=== PATIENT | male | born 1995 | race Caucasian/White ===

== ENCOUNTER 2017-10-13 23:41 | Emergency (ER) | payer OTHER ==
[~2017-10-13] VITALS: Ht 188 cm; Wt 71.2 kg
[2017-10-14] MEDS ORDERED: DIPH,PERTUSS(ACELL),TET VAC/PF 0.5 ML IM-VACC ONE ×2 (00:18→00:30)
[2017-10-14] MEDS ORDERED: HYDROcodone/APAP 5/325 TABLET ONE (00:18)
[2017-10-14] MEDS ORDERED: HYDROcodone/APAP 5/325 TABLET PO PRN (00:30)
[2017-10-14] MEDS ORDERED: LIDOCAINE 2%, 20ML INFIL ONE (00:30)
[2017-10-14] MEDS ORDERED: LIDOCAINE-MPF 1%, 5ML ONE (00:42)
[2017-10-14] MEDS ORDERED: BACITRACIN ZINC OINT 500U/GM, 0.9 GM ONE (00:43)
[2017-10-14] MEDS ORDERED: MICROFIBRILLAR COLLAGEN 1 GM TP ONE ×2 (01:47→02:00)
[2017-10-14 02:20] VITALS: BP 115/50
== END 2017-10-14 03:47 | disposition home or self-care (01) ==
LOC: ED 23:59
DX: S51.011A Laceration without foreign body of right elbow, initial encounter (principal); S61.511A Laceration without foreign body of right wrist, initial encounter; S61.411A Laceration without foreign body of right hand, initial encounter; S81.012A Laceration without foreign body, left knee, initial encounter; W01.198A Fall on same level from slipping, tripping and stumbling with subsequent striking against other object, initial encounter; Y93.89 Activity, other specified; Y92.098 Other place in other non-institutional residence as the place of occurrence of the external cause; Y99.8 Other external cause status
CPT/HCPCS: 11042; 12001; 13121; 90715; 96372; 99285